=== PATIENT | female | born 1985 | race Caucasian/White ===

== ENCOUNTER 2022-11-13 13:28 | Outpatient (CLI) | payer BC, SELFPAY ==
--- NOTE | ~2022-11-13 | US_ITS ---
EXAMINATION: US pelvic complete w TV DATE: 11/13/2022 14:11 INDICATION: Dysfunctional uterine bleeding Comparison:No prior studies for comparison. TECHNIQUE: Multiple transabdominal and endovaginal sonographic images of the pelvis performed. FINDINGS: The uterus measures 8.5 x 6.3 x 6 cm. The endometrial complex measures 12 mm. The right ovary measures 2.1 x 1.8 x 1.5 cm and the left ovary measures 5.1 x 4.6 x 4.7 cm. There is a left ovarian cyst measuring 4.4 cm. There are small follicles in each ovary. Normal doppler signal in both ovaries. There is free fluid in the pelvis. There are no abnormal masses seen on either side. IMPRESSION: 1. Left ovarian cyst measuring 4.4 cm. 2: Endometrial thickening measuring 12 mm. Reviewed, dictated and finalized at location B.
== END 2022-11-13 13:29 | disposition home or self-care (01) ==
LOC: CHSIMG 13:31
PROVIDERS: PCP Family Medicine
DX: N93.8 Other specified abnormal uterine and vaginal bleeding (principal); N83.202 Unspecified ovarian cyst, left side; R93.89 Abnormal findings on diagnostic imaging of other specified body structures
CPT/HCPCS: 76830; 76856

== ENCOUNTER 2022-12-24 13:58 | Outpatient (CLI) | payer BC, SELFPAY ==
--- NOTE | ~2022-12-24 | US_ITS ---
Pelvic ultrasound. Clinical History: Left ovarian cyst COMPARISON: 11/13/2022 Technique: Realtime transabdominal and transvaginal scanning of the pelvis was performed. Color flow Doppler and Doppler spectral analysis were performed. Findings: The uterus is anteverted. The endometrial stripe has a thickness of 16 mm. No focal mass i s identified. The right ovary measures 4.0 x 3.0 x 3.9 cm. Simple right ovarian cyst measures 2.5 cm in diameter. The left ovary measures 3.5 x 3.3 x 3.9 cm. Simple left ovarian cyst measures 3 cm in diameter. Addit ional smaller simple left ovarian cyst present.. There is no evidence of free fluid in the cul de sac. Impression: Bilateral simple ovarian cysts, largest the left ovary measuring 3 cm. Reviewed, dictated and finalized at location . [employer] Impression: Bilateral simple ovarian cysts, largest the left ovary measuring 3 cm.
== END 2022-12-24 13:59 | disposition home or self-care (01) ==
LOC: CHSIMG 14:00
PROVIDERS: PCP Family Medicine; Visit Provider Family Medicine
DX: N83.202 Unspecified ovarian cyst, left side (principal); N83.201 Unspecified ovarian cyst, right side
CPT/HCPCS: 76830; 76856

== ENCOUNTER 2024-07-21 09:15 | Outpatient (CLI) | payer BC, SELFPAY ==
--- NOTE | ~2024-07-21 | MM_ITS ---
Examination: screening [facility] BI W kaela INDICATION: Asymptomatic, referred for screening mammogram COMPARISON: Baseline TECHNIQUE: Digital Breast Tomosynthesis CC, MLO views of Both breasts were obtained with computer-ai ded detection to assist in interpretation of the study. FINDINGS: There are scattered areas of fibroglandular density. There is an asymmetry seen on the cc view in the Medial left breast centered at 6 cm posterior to the nipple. No other focal dominant mass, architectural distortion, or suspicious microcalcifications id entified. IMPRESSION: 1. Left breast Asymmetry. 2. No evidence of malignancy in the Right breast. RECOMMENDATION: Left breast Diagnostic mammogram with true lateral, appropriate spot compression views and an ultraso und if needed. BI-RADS 0, INCOMPLETE, NEEDS ADDITIONAL IMAGING EVALUATION Reviewed, dictated and finalized at location B. IMPRESSION: 1. Left breast Asymmetry. 2. No evidence of malignancy in the Right breast. RECOMMENDATION: Left breast Diagnostic mammogram with true lateral, appropriate spot compressio n views and an ultrasound if needed. BI-RADS 0, INCOMPLETE, NEEDS ADDITIONAL IMAGING EVALUATION
--- OUTSIDE RECORDS SUMMARY | 2024-07-21 09:24 | XMS_ITS | Clinical Summary ---
Author Organization [facility] al Address [address] [place] [address] Care Team Providers Care Transportation Museum Helper Name Role Phone Pola Orlando MD Primary Care Provider [phone] Allergies Active Allergy Reactions Criticality Noted Date Comments Latex Rash Medium 01/17/2023 Penicillins Rash Medium 01/17/2023 Medications loratadine (CLARITIN) 10 mg tablet Take 1 tablet (10 mg total) by mouth daily Active citalopram (CeleXA) 20 mg tablet Take 1 tablet (20 mg total) by mouth daily 11/12/2022 Active albuterol HFA (PROVENTIL HFA,VENTOLIN HFA,PROAIR HFA) 90 mcg/actuation inhaler Take 1 puff by mouth as needed 06/07/2019 Active omeprazole OTC (PriLOSEC OTC) 20 mg EC tablet Take 1 tablet (20 mg total) by mouth daily Active Active Problems No known active problems Social History Tobacco Use Types Packs/Day Years Used Date Smoking Tobacco: Never Assessed Comments Unknown Sex and Gender Information Value Date Recorded Sex Assigned at Not on file Legal Sex Female 11:03 AM CDT Gender Identity Not on file Sexual Orientation Not on file Obstetrics History Plan of Treatment Health Maintenance Due Date Last Done Comments Breast Cancer Screening-Mammogram 1984 Cervical Cancer Screening 1984 Depression Screening 1984 Hepatitis C Screening 1984 Varicella Vaccines (1 of 2 - 13+ 2-dose series) 1997 Hepatitis B Screening 2002 Regular Well Visit/Exam 18-64 2002 Covid-19 Vaccine ( season) 2023 11/08/2021, 01/24/2021, 05/12/2020, Additional history exists Influenza Vaccine (Season Ended) 2024 11/20/2022, 11/08/2021, 11/27/2020, Additional history exists DTaP/Tdap/Td Vaccine (8 - Td or Tdap) 06/06/2029 06/07/2019, 08/04/2017, 10/09/1999, Additional history exists HPV Vaccines Aged Out No longer eligi ble based on patient's age to complete this topic Pneumococcal vaccine <65 Aged Out No longer eligible based on patient's age to complete this topic Insurance [employer] [place] Care Teams Transportation Museum Helper Relationship Specialty Start Date End Date Pola Orlando MD [address] [place] [id number] PCP - General Family Practice 01/17/23
--- OUTSIDE RECORDS SUMMARY | 2024-07-21 09:24 | XMS_ITS | Referral Summary ---
Author Organization [facility] al Address [address] [place] [address] Care Team Providers Care Pecan Mallow Dipper Name Role Phone Pola Orlando MD Primary Care Provider [phone] Allergies Active Allergy Reactions Criticality Noted Date [...] on file Sexual Orientation Not on file Plan of Treatment Not on file Insurance [facility] Care Teams Pecan Mallow Dipper Relationship Specialty Start Date End Date Pola Orlando MD [address] [place] [id number] PCP - General Family Practice 01/17/23
--- OUTSIDE RECORDS SUMMARY | 2024-07-21 09:24 | XMS_ITS | Clinical Summary ---
Author Organization [facility] Address [address] [place] [address] Care Team Providers Care Apprentice Funeral Director Name Role Phone Pola Orlando MD Primary Care Provider Source Comments [facility] Affiliates and Associated Physician Practices is amultiple site organization consisting of ambulatory clinics and hospital sitesin [place], [place], [place] and [place]. This disclosure is being madepursuant to the Care Everywhere program and may not contain all information available regarding this patient. Last updated 17.[facility] [employer] Allergies Active Allergy Reactions Criticality Noted Date Comments Latex Itching,Rash Medium Penicillins Skin Reactions,Itchi ng,Shortness of Breath,Urticaria High Medications * Be aware that medications may not be up to date on this document. Alwaysverify current medications with the patient. Vit-Fe Fumarate-FA (PNV PLUS MULTIVITAMIN) 27-1 MG TABS Take 1 tablet by mouth once daily 9 07/02/2017 Active calcium carbonate (TUMS) 500 MG chew tablet Take 1 tablet by mouth daily with food Active loratadine (CLARITIN) 10 MG tablet Take 10 mg by mouth once daily Active famotidine (PEPCID) 20 MG tablet Take 1 tablet by mouth at bedtime 90 tablet 3 07/23/2019 Active albuterol HFA (PROVENTIL;VENT NEVIN;PROAIR) 108 (90 Base) MCG/ACT inhaler Take by mouth as needed 06/07/2019 Active ibuprofen (MOTRIN) 600 MG tablet Take 1 tablet by mouth every 6 hours as needed for Pain 40 tablet 1 09/02/2019 Active docusate sodium (COLACE) 100 MG capsule Take 1 capsule by mouth 2 times daily 60 capsule 1 09/02/2019 Active Active Problems Problem Noted Date Diagnosed Date Threatened labor 09/01/2019 Threatened premature labor in third trimester AMA (advanced maternal age) multigravida 35+ 06/2019 Irregular contractions 10/30/2017 Resolved Problems Problem Noted Date Diagnosed Date Resolved Date Spontaneous vaginal delivery 10/30/2017 10/30/2017 Overview (10/30/2017): 10/30/17 Decreased movements in second trimester 10/23/19 18 07/23/2019 Evaluate anatomy not seen on prior sonogram 07/23/2019 32 weeks gestation of 07/23/2019 Encounter for ultrasound to assess interval growth of fetus 07/23/2019 23 weeks gestation of 07/23/2019 Immunizations Immunization Administration Dates Next Due INFLUENZA VACCINE, QUADR. (F LUZONE; FLULAVAL; FLUARIX; AFLURIA QUADRIVALENT; 6MO+), 0.5 ML (IIV4) 10/31/2017 MMR 09/02/2019(Deferred: - immune) TDAP (7yrs+) 09/02/2019(Deferred: - recieved during ),08/04/2017 Social History Tobacco Use Types Packs/Day Years Used Date Smoking Tobacco: Former Cigarettes 2 3 0 03/08/2003 - 03/08/2006 Smokeless Tobacco: Never Tobacco Cessation:Counseling Given: No Alcohol Use Standard Drinks/Week Comments No 0 (1 standard drink = 0.6 oz pur e alcohol) Comments No Sex and Gender Information Value Date Recorded Sex Assigned at Not on file Legal Sex Female 5:17 PM DIETETIC TECHNICIAN Gender Identity Not on file Sexual Orientation Not on file Last Filed Vital Signs Vital Sign Reading Time Taken Comments Blood Pressure 120/83 09/02/2019 8:05 AM CDT Pulse 72 09/01/2019 11:44 PM CDT Temperature 36.5 C (97.7 F) 09/02/2019 8:05 AM CDT Respiratory Rate 14 09/02/2019 8:05 AM CDT Oxygen Saturation 100% 09/02/2019 8:05 AM CDT Inhaled Oxygen Concentration - - Weight 108.9 kg (240 lb) 09/01/2019 8:15 AM CDT Height 172.7 cm (5' 8) 09/01/2019 8:15 AM CDT Body Mass Index 36.49 09/01/2019 8:15 AM CDT Plan of Treatment Health Maintenance Due Date Last Done Comments LIPID TESTING 1984 MAMMOGRAM 1984 HEPATITIS C SCREENING 03/24/2002 HEPATITIS B VACCINE (1 of 3 - 19+ 3-dose series) 2003 COVID-19 VACCINE (2023-2 5 season) 2023 DEPRESSION SCREENING 02/18/2024 PAP with HPV 03/02/2024 03/02/2019 INFLUENZA VACCINE (Season Ended) 2024 10/31/2017 DTAP/TDAP/TD VACCINES (2 - T d or Tdap) 08/05/2027 08/04/2017 ZOSTER VACCINE (1 of 2) 2034 HIV SCREENING Completed 04/26/2019, 04/07/2017 HIB VACCINE Aged Out No longer eligi ble based on patient's age to complete this topic HPV VACCINE Aged Out No longer eligi ble based on patient's age to complete this topic MENINGOCOCCAL (Group B) VACCINE SHARED DECISION-MAKING Aged Out No longer eligible based on patient's age to complete this topic MENINGOCOCCAL GROUPS A/C/Y/W VACCINE Aged Out No longer eligible b ased on patient's age to complete this topic PNEUMOCOCCAL VACCINE Aged Out No long er eligible based on patient's age to complete this topic Procedures Procedure Name Priority Date/Time Associated Diagnosis Comments CULTURE STREP B Routine 08/02/2019 10:26 AM CDT Encounter for supervision of other normal in third trimester HIV-1 HIV-2 ANTIBODY + HIV P24 AG PANEL 04/26/2019 9:49 AM CDT HPV DETECTION HIGH RISK CASSIDY Routine 03/02/2019 3:15 PM DIETETIC TECHNICIAN Encounter for supervision of other normal in second trimester GLUCOSE CHALLENGE Routine 08/04/2017 2:4 0 PM CDT Supervision of other normal , antepartum from Last 3 Months or Most Recently Relevant to Health Maintenance Results * CULTURE STREP B (08/02/2019 10:26 AM CDT) Culture [facility] Comment: STREPTOCOCCUS, GROUP B CULTURE Micro Number: [id number] Test Status: Final Specimen Source: VAGINAL/ANORECTAL Specimen Quality: Adequate Result: No group B Streptococcus isolated Note per CDC guidelines optimal recovery is achieved by swabbing both the lower vagina and rectum (through the anal sphincter). Test Performed at: [facility] [id number] NUPUR ZELAYA MD Microbiology MISCELLANEOUS SAMPLES / Unknown 08/02/2019 10:26 AM CDT 08/02/2019 11:34 AM CDT Jude Chase MD LAB - MICROBIOLOGY ORDERABL ES Final Result [address] [id number] * HIV-1 HIV-2 ANTIBODY + HIV P24 AG PANEL (04/26/2019 9:49 AM CDT) Pathologist [facility] HIV Screen 4th Generation w Reflex NON-REACT VALERIANO NON-REACT VALERIANO [facility] Comment: HIV-1 antigen and HIV-1/HIV-2 antibodies were not detected. There is no laboratory evidence of HIV infection. PLEASE NOTE: This information has been disclosed to you from records whose confidentiality may be protected by state law. If your state requires such protection, then the state law prohibits you from making any further disclosure of the information without the specific written consent of the person to whom it pertains, or as otherwise permitted by law. A general authorization for the release of medical or other information is NOT sufficient for this purpose. For additional information please refer to http://education.Bio[employer].Sprint Nextel/faq/MKU322 (This link is being provided for informational/ educational purposes only.) The performance of this assay has not been clinically validated in patients less than 2 years old. REPORT COMMENT: FASTING:NO Test Performed at: [facility] [address] [place] [address] MINDY VALDOVINOS DO,MPH 04/26/2019 9:49 AM CDT 04/26/2019 9:49 AM CDT Jude Chase MD LAB - CHEMISTRY ORDERABLES Final Result Performing Organization Address [facility] Co de Phone Number [facility] [address] [place] [address] * HPV DETECTION HIGH RISK CASSIDY (03/02/2019 3:15 PM DIETETIC TECHNICIAN) High Risk Human Papilloma Result Not Detected Not Detected 03/05/2019 8:45 AM DIETETIC TECHNICIAN [facility] High Risk Human Papilloma Interp 03/05/2019 8:45 AM DIETETIC TECHNICIAN [facility] Comment:High Risk Human Ronny lloma Virus was Not Detected. Pathology/Cytolo gy MISCELLANEOUS SAMPLES / Unknown 03/02/2019 3:15 PM DIETETIC TECHNICIAN 03/03/2019 11:56 AM DIETETIC TECHNICIAN Narrative [facility] - 03/05/2019 8:45 AM DIETETIC TECHNICIAN Nucleic acid isolated from the specimen was analyzed with a nucleic acid amplification test (FDA approved Gen-Probe HPV Assay) to detect high risk human papilloma virus (Types: 16, 18, 31, 33, 35, 39, 45, 51, 52, 56, 58, 59, 66, and 68). The reference range is Not Detected. Comment: These test results should not be used as the sole basis for clinical assessment and treatment of patients. These results should always be correlated with other available data (cytology, histology, and clinical information). Jude Chase MD LAB - MICROBIOLOGY ORDERABL ES Final Result Performing Organization Address [facility] Co de Phone Number [facility] [address] [place], [place] [address] [phone] * GLUCOSE CHALLENGE (08/04/2017 2:40 PM CDT) GTT 1Hr 92 <135 mg/dL JACKIE Comment: Test Performed at: [facility] ([facility] [employer]) [id number] [place] [id number] MINDY VALDOVINOS DO,MPH Blood BLOOD SPECIMEN / Unknown 08/04/2017 2:40 PM CDT 08/04/2017 2:41 PM CDT us Jude Chase MD LAB - CHEMISTRY ORDERABLES Final Result [facility] [address] [place] [address] from Last 3 Months or Most Recently Relevant to Health Maintenance [facility] Advance Directives * Full Code (Latest Code Status on File) Date Activated Date Inactivated Comments 09/01/2019 6:47 AM 09/02/2019 4:51 PM * Full Code Date Activated Date Inactivated Comments 07/23/2019 1:38 PM 07/23/2019 4:23 PM * Full Code Date Activated Date Inactivated Comments 10/30/2017 1:06 AM 11/01/2017 1:10 PM * Full Code Date Activated Date Inactivated Comments 10/22/2017 1:20 PM 10/22/2017 4:43 PM Care Teams Apprentice Funeral Director Relationship Specialty Start Date End Date Pola Orlando MD [address] [place] [address] PCP - General Family Medicine 10/30/17
== END 2024-07-21 09:16 | disposition home or self-care (01) ==
PROVIDERS: PCP Family Medicine; Visit Provider Nurse Practitioner Family
DX: Z12.31 Encounter for screening mammogram for malignant neoplasm of breast (principal); R92.8 Other abnormal and inconclusive findings on diagnostic imaging of breast
CPT/HCPCS: 77063; 77067

== ENCOUNTER 2024-08-06 08:47 | Outpatient (CLI) | payer BC, SELFPAY ==
--- NOTE | ~2024-08-06 | MMUS_ITS ---
EXAMINATION: MM diagnostic kristie LT w kaela, US breast LT complete HISTORY: Follow-up left breast asymmetry TECHNIQUE: Additional 3-D tomosynthesis images of the left breast were performed and synthetic 2-D im ages were generated. CAD analysis was submitted and interpreted. High resolution complete left breast ultrasound was performed. COMPARISON: 07/21/2024 BREAST PARENCHYMAL COMPOSITION: Not dense: There are scattered areas of fibroglandular density. FINDINGS: MAMMOGRAPHIC FINDINGS: There are no suspicious masses, calcifications or architectural distortion in the left breast to sugg est malignancy. ULTRASOUND: Complete US of all 4 quadrants of the left breast/s and retroareolar region was reviewed. Normal hete rogeneous echotexture without focal solid or cystic mass. IMPRESSION: 1. No evidence for malignancy in the left breast. 2. Routine yearly screening mammogram and regular clinical breast examination are recommended. BI-RADS Category 1: Negative Reviewed, dictated and finalized at location A. IMPRESSION: 1. No evidence for malignancy in the left breast. 2. Routine yearly screening mammogram and regular clinical breast examination a re recommended. BI-RADS Category 1: Negative
== END 2024-08-06 08:48 | disposition home or self-care (01) ==
PROVIDERS: PCP Family Medicine; Visit Provider Nurse Practitioner Family
DX: N64.89 Other specified disorders of breast (principal)
CPT/HCPCS: 76641; 77061; 77065; G0279